=== PATIENT | female | born 1970 | race Caucasian/White ===

== ENCOUNTER 2016-05-28 07:51 | Day surgery (SDC) | payer OTHER ==
[2016-05-24 11:09] VITALS: BMI 26.0
[~2016-05-28] VITALS: Ht 160 cm; Wt 68.2 kg
[~2016-05-28 07:51] MED LIST: ALBUAER PO; CLIN300C2 PO; LACTATED RINGER'S 1000ML 1,000 ML IV SCH; PRLSR20 PO; SERT50TA PO
[2016-05-28 08:20] VITALS: BP 111/77; PULSE 64; TEMP 36.8; O2SAT 98; Ht 160 cm; Wt 68.2 kg
[2016-05-28] MEDS ORDERED: LACTATED RINGER'S 1000ML 1,000 ML IV ONE (09:13)
[2016-05-28] MEDS ORDERED: CIPROFLOXACIN 400MG / 200ML D5W IV SCH (09:30)
[2016-05-28 09:58] LABS: BASO % 0.5 %; BASO ABS # 0.03 K/uL (0-0.2); HEMATOCRIT 42.2 % (37-47); IG% 0.2 %; LYMPH % 27.7 %; LYMPH ABS # 1.56 K/uL (1.2-3.4); MEAN CELL VOLUME 88.8 fL (80-100); MEAN CORPUSCULAR HEMOGLOBIN 30.5 pg (25-34); MEAN PLATELET VOLUME 11.8 fL (7.4-10.4); MONO % 8.5 %; NEUT % 58.1 %; PLATELET COUNT 169 K/uL (130-400); RED BLOOD COUNT 4.75 M/uL (4.2-5.4); WHITE BLOOD COUNT 5.63 K/uL (4.8-10.8)
[2016-05-28] MEDS ORDERED: FENTANYL CITRATE INJ 50 MCG/1 ML 2 ML VIAL ONE (10:05)
[2016-05-28] MEDS ORDERED: SUCCINYLCHOLINE CHLORIDE 20 MG/ML 10 ML VIAL IV ONE (10:05)
[2016-05-28] MEDS ORDERED: LIDOCAINE HCL 2% 2 ML VIAL (20MG/ML) ONE (10:05)
[2016-05-28] MEDS ORDERED: PROPOFOL IV EMULSION 10 MG/ML 20 ML VIAL IV ONE (10:05)
[2016-05-28] MEDS ORDERED: ROCURONIUM BROMIDE 10 MG/ML 5 ML VIAL ONE (10:05)
[2016-05-28 10:09] LABS: COMPLETE YES; MEAN CORPUSCULAR HGB CONC 34.4 g/dl (32-36)
[2016-05-28 10:22] LABS: ALB/GLOB RATIO 0.9 (0.9-2); BUN/CREATININE RATIO 20.3 (10-20); CREATININE 0.58 mg/dl (0.60-1.20); POTASSIUM 4.2 mmol/L (3.5-5.1)
[2016-05-28] MEDS ORDERED: MIDAZOLAM HCL 1 MG/ML 2ML VIAL ONE (10:49)
[2016-05-28] MEDS ORDERED: INDOMETHACIN 50 MG SUPP PR ONE ×3 (10:55→12:03)
--- NOTE | 2016-05-28 11:05 | Endo History and Physical ---
History & Physical Date of Service: May 28, 2016. Chief Complaint: Abdominal pain Referring Physician: Dr. Paris and Dr. Jeff History of Present Illness 46 year old female with a history of abdominal pain, imaging c/w chronic pancreatitis and notable for several intraductal stones. She has been referred for pancreatic endotherapy. Past Surgical History Hx Cardiac Surgery: No Hx Abdominal Surgery: Yes (C-SECTIONS X3, HYSTERECTOMY, CHOLECYSTECTOMY, APPENDECTOMY, ) Hx Post-Op Nausea and Vomiting: No Hx Cancer Surgery: No Hx Thoracic Surgery: No Hx Orthopedic: No Hx Urinary Tract Surgery: No Social History Smoking Status: Current Every Day Smoker Hx Substance Use: No Hx Alcohol Use: No Allergies Coded Allergies: Meperidine (Unverified Allergy, Intermediate, rash, 05/28/16) Penicillins (Unverified Allergy, Intermediate, hives, 05/28/16) Sulfamethoxazole w/Trimethoprim (Verified Allergy, Intermediate, "HIVES" , 05/28/16) Propoxyphene (Verified Adverse Reaction, Intermediate, "CRAZY", 05/28/16) Current Medications Reported Home Medications Medications Dose Route/Sig Max Daily Dose Days Date Category Dose Instructions Proventil Hfa (Albuterol Sulfate) Unknown Strength Aer Unknown Dose PO PRN 05/24/16 Reported PATIENT REPORTS USING THIS RARELY - INSTRUCTED TO BRING WITH PATIENT THE DAY OF SURGERY AND USE IF NEEDED AND DIRECTED PRIOR TO HAVING PROCEDURE Prilosec (Omeprazole) 20 Mg Capcr 20 Mg PO BID 05/24/16 Reported Zoloft (Sertraline HCl) 50 Mg Tab 75 Mg PO QAM 05/24/16 Reported Vital Signs Weight (Kilograms): 68.18 Height (Feet): 5 Height (Inches): 3 Date Time Temp Pulse Resp B/P Pulse Ox O2 Delivery O2 Flow Rate FiO2 05/28/16 08:20 36.8 64 18 111/77 98 Room Air Physical Exam General Appearance: no apparent distress Respiratory/Chest: Auscultation: deminished air movement Cardiovascular: Heart Auscultation: RRR, no murmurs Abdomen: Inspection & Palpation: soft, RUQ tenderness Assessment and Plan Patient referred for pancreatic endotherapy due to a history of chronic pancreatitis. We have discussed the risks of ERCP to include failed cannulation , pancreatitis, infection, perfortion, continued pain, and need for f/u procedures.
[2016-05-28] MEDS ORDERED: ALBUTEROL HFA INHALER 8.5 GM INH ONE (11:33)
[2016-05-28] MEDS ORDERED: LARYING-O-JET KIT (LTA) EXT ONE ×2 (11:35)
[2016-05-28] MEDS ORDERED: DEXAMETHASONE SOD INJ 4 MG/ML VIAL ONE (11:49)
[2016-05-28] MEDS ORDERED: ONDANSETRON INJ 2 MG/ML 2 ML VIAL ONE (11:49)
[2016-05-28] MEDS ORDERED: GLYCOPYRROLATE INJ 0.2 MG/ML VIAL ONE (11:49)
--- NOTE | 2016-05-28 12:20 | GI REPORT ---
Procedure Date: 05/28/2016 11:10 AM Procedure: ERCP Indications: Abdominal pain of suspected pancreatic origin, Abnormal endoscopic ultrasound of the pancreas, For therapy of chronic pancreatitis Medicines: General Anesthesia, Cipro 400 mg IV, Indocin 100 mg NC Complications: No immediate complications. Estimated blood loss: Minimal. Estimated Blood Loss: Estimated blood loss was minimal. Procedure: Pre-Anesthesia Assessment: - Prior to the procedure, a History and Physical was performed, and patient medications, allergies and sensitivities were reviewed. The patient's tolerance of previous anesthesia was reviewed. - The risks and benefits of the procedure and the sedation options and risks were discussed with the patient. All questions were answered and informed consent was obtained. - Patient identification and proposed procedure were verified prior to the procedure by the physician, the nurse and the manager instrumentation. The procedure was verified in the procedure room. - Pre-procedure physical examination revealed no contraindications to sedation. - ASA Grade Assessment: II - A patient with mild systemic disease. - After reviewing the risks and benefits, the patient was deemed in satisfactory condition to undergo the procedure. - The anesthesia plan was to use general anesthesia. - Immediately prior to administration of medications, the patient was re-assessed for adequacy to receive sedatives. - The heart rate, respiratory rate, oxygen saturations, blood pressure, adequacy of pulmonary ventilation, and response to care were monitored throughout the procedure. - The physical status of the patient was re-assessed after the procedure. After obtaining informed consent, the scope was passed under direct vision. Throughout the procedure, the patient's blood pressure, pulse, and oxygen saturations were monitored continuously. The scope was introduced through the mouth, and advanced to the duodenum and used to inject contrast into the ventral pancreatic duct. The ERCP was accomplished without difficulty. The patient tolerated the procedure well. Findings: A atlassian administrator film of the abdomen was obtained. Surgical clips, consistent with previous cholecystectomy, were seen in the area of the right upper quadrant of the abdomen. The esophagus was successfully intubated under direct vision without detailed examination of the pharynx, larynx, and associated structures, and upper GI tract. The upper GI tract was grossly normal. The major papilla was normal. The ventral pancreatic duct was deeply cannulated with the short-nosed traction sphincterotome (Omni 35) and 0.035 in Acrobat guidewire during the 3rd cannulation attempt. Contrast was injected. I personally interpreted the pancreatic duct images. Contrast extended to the pancreatic duct. Diffuse changes, including mild irregularity of the main pancreatic duct, were seen in the entire opacified area, consistent with moderate chronic pancreatitis. Ventral pancreatic sphincterotomy was made with a monofilament short-tip traction sphincterotome using ERBE electrocautery. There was no post-sphincterotomy bleeding. To find object(s) the ventral pancreatic duct was swept with an 8.5 mm balloon starting at the pancreatic duct in the body of the pancreas. A few small pale stones were removed. No stones remained. One 5 Fr by 9 cm pancreatic stent with a full external pigtail and no internal flaps was placed 9 cm into the ventral pancreatic duct. Clear fluid flowed through the stent(s). The stent was in good position. The endoscope was withdrawn from the patient. Impression: - The major papilla appeared normal. - A sphincterotomy was performed. - The ventral pancreatic duct was swept. - One pancreatic stent was placed into the ventral pancreatic duct. - Pancreatic stones were found. The pancreatic duct was stented and complete removal was accomplished. Recommendation: - Avoid aspirin and nonsteroidal anti-inflammatory medicines for 1 week. - Clear liquid diet today. - Cipro (ciprofloxacin) 500 mg PO BID for 3 days. - Observe patient's clinical course following today's ERCP with therapeutic intervention, unclear if symptoms are related to chronic pancreatitis. - Perform a flat plate abdominal x-ray in 4 weeks, if stent still in place a repeat procedure will be arranged. - Patient should discontinue smoking as this may be contributing to her present symptoms. Yari Mon D.O. Yari 05/28/2016 12:19:38 PM This report has been signed electronically. Note Initiated On: 05/28/2016 11:10 AM
--- NOTE | 2016-05-28 12:21 | [facility] Post Operative Brief Note ---
Immediate Operative Summary Operative Date May 28, 2016. Pre-Operative Diagnosis Pancreatic stones Post-Operative Diagnosis Same Procedure(s) Performed Endoscopic Retrograde pancreatogram Surgeon Dr Yari Mon Bioinformatician Surgeon(s) None Estimated Blood Loss 0ML Findings Chronic pancreatitis Pancretic sphinterotomy and removal of several small stones Pancreatic stent placed. Specimens All specimens handled by endoscopy staff Anesthesia General Complication(s) None Disposition Recovery Room / PACU
--- NOTE | 2016-05-28 12:22 | Discharge Instructions ---
Endoscopy Patient Instructions Date / Procedure(s) Performed May 28, 2016. ERCP Allergy Information Coded Allergies: Meperidine (Unverified Allergy, Intermediate, rash, 05/28/16) Penicillins (Unverified Allergy, Intermediate, hives, 05/28/16) Sulfamethoxazole w/Trimethoprim (Verified Allergy, Intermediate, "HIVES" , 05/28/16) Propoxyphene (Verified Adverse Reaction, Intermediate, "CRAZY", 05/28/16) Discharge Date / Findings May 28, 2016. Chronic pancreatitis Pancreatic stent placed Medication Instructions Reported Home Medications Medications Dose Route/Sig Max Daily Dose Days Date Category Dose Instructions Proventil Hfa (Albuterol Sulfate) Unknown Strength Aer Unknown Dose PO PRN 05/24/16 Reported PATIENT REPORTS USING THIS RARELY - INSTRUCTED TO BRING WITH PATIENT THE DAY OF SURGERY AND USE IF NEEDED AND DIRECTED PRIOR TO HAVING PROCEDURE Prilosec (Omeprazole) 20 Mg Capcr 20 Mg PO BID 05/24/16 Reported Zoloft (Sertraline HCl) 50 Mg Tab 75 Mg PO QAM 05/24/16 Reported Provider Instructions Activity Restrictions - No exercising or heavy lifting for 24 hours. - Do not drink alcohol the day of the procedure. - Do not drive a car or operate machinery until the day after the procedure. - Do not make any important decisions or sign important papers in 24 hours after the procedure. Following Day: - Return to full activity which may include returning to work/school. Diet Clear liquid diet today may return to a regular diet on 05/29/16 Treatment For Common After Affects For mild abdominal pain, bloating, or excessive gas: - Rest - Eat lightly - Lie on right side Follow-Up Information Follow-up with Dr. Jeff's office as scheduled Cipro 500 mg twice daily for 3 days Abdominal x-ray in 4 weeks (to check for stent migration) Anesthesia Information What You Should Know You have had a procedure that required some medicine to reduce anxiety and discomfort. This treatment is called moderate sedation. After receiving the treatment, you may be sleepy, but you will be able to breathe on your own. The effects of the treatment may last for several hours. Follow these instructions along with Activity/Diet recommendations noted above: * Do NOT do anything where dizziness or clumsiness would be dangerous. * Rest quietly at home today, then you can be up and about tomorrow. * Have a responsible person stay with you the rest of today. * You may have had an I.V. today. If so, you may take the dressing off later today. Recommendations Call your doctor if: * Trouble breathing * Continuous vomiting for more than 24 hours * Temperature above 101 degrees * Severe abdominal pain or bloating * Pain not relieved by pain medicine ordered * There is increased drainage or redness from any incision * A large amount of rectal bleeding greater than 2-3 tablespoons. (If you had a polyp/s removed or have hemorrhoids, a small amount of blood - from the rectum is to be expected.) * You have any unanswered questions or concerns. IN THE EVENT OF A SERIOUS EMERGENCY, GO TO THE NEAREST EMERGENCY ROOM Your discharge instructions were prepared by provider Yari Mon. Patient Instructions Signature Page Flora Osullivan Patient (or Guardian) Signature/Date: I have read and understand the instructions given to me by my caregivers. Caregiver/RN/Doctor Signature/Date: The above-named patient and/or guardian has received patient instructions on this date. + Original Patient Signature Page (only) stays with chart. Please make copy for patient.
[2016-05-28] MEDS ORDERED: PANTOprazole INJ 40 MG in SYRINGE 0 ML IV STA (12:29)
[2016-05-28] MEDS ORDERED: NURSING VERBAL MED ORDER ONE (12:30)
[2016-05-28] MEDS ORDERED: ONDANSETRON INJ 2 MG/ML 2 ML VIAL IV PRN (12:30)
--- NOTE | 2016-05-28 12:44 | Anesthesiology Progress Note ---
Anesthesia Post Op Note Date & Time May 28, 2016 at 12:43 Vital Signs Pain Intensity: 8 Vital Signs Past 12 Hours Date Time Temp Pulse Resp B/P Pulse Ox O2 Delivery O2 Flow Rate FiO2 05/28/16 12:35 69 20 144/100 98 Room Air 05/28/16 12:25 77 20 146/95 100 Room Air 05/28/16 12:15 73 18 131/94 100 Mask 10 05/28/16 12:10 79 16 143/97 100 Mask 10 05/28/16 12:04 36.6 81 16 147/91 100 Mask 10 05/28/16 08:20 36.8 64 18 111/77 98 Room Air Notes Mental Status: alert / awake / arousable, participated in evaluation Pt Amnestic to Procedure: Yes Nausea / Vomiting: adequately controlled Pain: adequately controlled Airway Patency, RR, SpO2: stable & adequate BP & HR: stable & adequate Hydration State: stable & adequate Anesthetic Complications: no major complications apparent
[2016-05-28] MEDS ORDERED: ATROPINE SULFATE 0.1 MG/ML 5ML SYR IV PRN (12:45)
[2016-05-28] MEDS ORDERED: FENTANYL CITRATE INJ 50 MCG/1 ML 2 ML VIAL IV PRN (12:45)
[2016-05-28] MEDS ORDERED: EpHEDrine SULFATE INJ 50 MG/ML AMP IV PRN (12:45)
[2016-05-28 12:55] VITALS: BP 149/82; PULSE 69; TEMP 36.4; O2SAT 97
--- NOTE | 2016-05-28 13:11 | DIAGNOSTIC IMAGING REPORT ---
INTRAOPERATIVE RADIOGRAPHS CLINICAL HISTORY: ERCP. Fluoroscopy time: 76 seconds. FINDINGS: 11 spot fluoroscopic images of the right upper quadrant from an ERCP procedure are presented. Cholecystectomy clips are noted. An endoscope is present in the stomach on the initial image. There is cannulation of the pancreatic duct with evidence of duct exploration. The final image shows a pancreatic stent in place. IMPRESSION: ERCP images from pancreatic duct exploration and stenting. See operative report for detailed findings. Electronically signed by: Rao Bowers M.D. 05/28/2016 1:10 PM Dictated Date/Time: 05/28/2016 1:08 PM
[2016-05-28 13:26] VITALS: BP 136/85; PULSE 65; O2SAT 98
== END 2016-05-28 14:10 | disposition home or self-care (01) ==
LOC: C.ACU 07:51
PROVIDERS: ATTEND Internal Medicine Gastroenterology
DX: K86.1 Other chronic pancreatitis (principal); Z98.890 Other specified postprocedural states; Z90.710 Acquired absence of both cervix and uterus; Z88.0 Allergy status to penicillin; Z88.2 Allergy status to sulfonamides; Z88.8 Allergy status to other drugs, medicaments and biological substances; Z90.49 Acquired absence of other specified parts of digestive tract; F17.210 Nicotine dependence, cigarettes, uncomplicated